=== PATIENT | male | born 1975 | race Caucasian/White ===

== ENCOUNTER 2017-05-04 15:41 | Emergency (ER) | payer BC ==
[2017-05-04 15:52] VITALS: BP 138/73; PULSE 78; TEMP 98.3; BMI 34.2
== END 2017-05-04 16:49 | disposition left against medical advice (07) ==
LOC: JERFT 15:41
DX: Z53.21 Procedure and treatment not carried out due to patient leaving prior to being seen by health care provider (principal)
CPT/HCPCS: 99281-25

== ENCOUNTER 2017-05-04 17:00 | Emergency (ER) | payer BC, OTHER ==
[2017-05-04 17:11] VITALS: BP 136/90; PULSE 88; TEMP 98.1; BMI 34.2
[2017-05-04] MEDS ORDERED: NAPROXEN 500 MG TABLET (FP) PO ONE (17:19)
[2017-05-04] MEDS ORDERED: NAPROXEN 500 MG TABLET (FP) ONE (17:23)
--- NOTE | 2017-05-04 17:23 | PDOC ---
History of Present Illness - General History Source: Patient Exam Limitations: No Limitations <Patel Clements - Last Filed: 05/04/17 17:40> - General History Source: Patient Exam Limitations: No Limitations - History of Present Illness Initial Comments: 05/04/17 17:27 The patient is a 42 year old male, with significant past medical history of asthma, who presents today with a right calf pain. The patient explains saw a raccoon and started running when he felt sudden pain and tightness to the back of his right calf. The pain is exacerbated when bearing weight. He believes that he pulled a muscle. The patient is ambulatory, but limping. Denies head trauma, or any other injuries. Denies numbness or tingling of the RLE. Allergies: seasonal <Va Taylor - Last Filed: 05/04/17 17:42> - General Chief Complaint: Injury Stated Complaint: RT LEG CALF PAIN Time Seen by Provider: 05/04/17 17:01 Past History - Past Medical History Asthma: Yes - Immunization History Immunization Up to Date: Yes - Psycho/Social/Smoking Cessation Hx Anxiety: No Suicidal Ideation: No Smoking Status: No Smoking History: Never smoked Have you smoked in the past 12 months: No Number of Cigarettes Smoked Daily: 0 Information on smoking cessation initiated: No Hx Alcohol Use: No Drug/Substance Use Hx: No Substance Use Type: None <Patel Clements - Last Filed: 05/04/17 17:40> <Va Taylor - Last Filed: 05/04/17 17:42> - Past Medical History Allergies/Adverse Reactions: Allergies Allergy/AdvReac Type Severity Reaction Status Date / Time seasonal Allergy Uncoded 05/04/17 17:01 Home Medications: Ambulatory Orders Albuterol Sulfate Inhaler - [Ventolin HFA Inhaler -] 1 - 2 inh PO Q4H #1 inhaler 09/12/16 Naproxen [Naprosyn -] 500 mg PO BID PRN #20 tablet 05/04/17 Review of Systems - Review of Systems Able to Perform ROS?: Yes Comments:: 05/04/17 17:28 GENERAL/CONSTITUTIONAL: No fever or chills. No weakness. HEAD, EYES, EARS, NOSE AND THROAT: No change in vision. No ear pain or discharge. No sore throat. CARDIOVASCULAR: No chest pain or shortness of breath. RESPIRATORY: No cough, wheezing, or hemoptysis. GASTROINTESTINAL: No nausea, vomiting, diarrhea or constipation. GENITOURINARY: No dysuria, frequency, or change in urination. MUSCULOSKELETAL: +right calf pain. No joint or muscle swelling or pain. No neck or back pain. SKIN: No rash NEUROLOGIC: No headache, vertigo, loss of consciousness, or change in strength/ sensation. ENDOCRINE: No increased thirst. No abnormal weight change. HEMATOLOGIC/LYMPHATIC: No anemia, easy bleeding, or history of blood clots. ALLERGIC/IMMUNOLOGIC: No hives or skin allergy. <Va Taylor - Last Filed: 05/04/17 17:42> *Physical Exam - Vital Signs Last Vital Signs Temp Pulse Resp BP Pulse Ox 98.1 F 88 18 136/90 97 05/04/17 17:01 05/04/17 17:01 05/04/17 17:01 05/04/17 17:01 05/04/17 17:01 <Patel Clements - Last Filed: 05/04/17 17:40> - Vital Signs Last Vital Signs Temp Pulse Resp BP Pulse Ox 98.1 F 88 18 136/90 97 05/04/17 17:01 05/04/17 17:01 05/04/17 17:01 05/04/17 17:01 05/04/17 17:01 - Physical Exam Comments: 05/04/17 17:29 GENERAL: Awake, alert, and fully oriented, in no acute distress HEAD: No signs of trauma EYES: PERRLA, EOMI, sclera anicteric, conjunctiva clear ENT: Auricles normal inspection, hearing grossly normal, nares patent, oropharynx clear without exudates. Moist mucosa NECK: Normal ROM, supple, no lymphadenopathy, JVD, or masses LUNGS: Breath sounds equal, clear to auscultation bilaterally. No wheezes, and no crackles HEART: Regular rate and rhythm, normal S1 and S2, no murmurs, rubs or gallops EXTREMITIES: +Mild swelling of the right calf compared to left calf. Tenderness to palpation of the right calf. Skin is not tense. 2+DP pulse. Cates test is negative. No pain elicited on passive plantar flexion and dorsiflexion of the foot. NEUROLOGICAL: Cranial nerves II through XII grossly intact. Normal speech, antalgic gait SKIN: Warm, Dry, normal turgor, no rashes or lesions noted. <Va Taylor - Last Filed: 05/04/17 17:42> Medical Decision Making - Medical Decision Making 05/04/17 17:18 A portion of this note was documented by scribe services under my direction. I have reviewed the details of the note, within reason, and agree with the documentation with the following case summary and management plan written by me. Patient treated in the ED. Nursing notes are reviewed and incorporated into the medical decision-making. Vital signs reviewed. Peripheral IV access obtained by the nurse, laboratory studies are drawn and sent, reviewed and interpreted by myself. Vital Signs Temp Pulse Resp BP Pulse Ox 98.1 F 88 18 136/90 97 05/04/17 17:01 05/04/17 17:01 05/04/17 17:01 05/04/17 17:01 05/04/17 17:01 42-year-old male with past medical history of asthma presents with right calf pain. The patient's or raccoon and started to run. He felt a sudden onset of right calf pain. Started to limp. Denies numbness or weakness. Came into the ED for further management. Physical exam demonstrates a mildly swollen right calf compared to left is tender to palpation. Cates test is negative and there are no concerns for Achilles tendon rupture at this time. However, I suspect that there is a Strain versus tear. There is no clinical evidence of compartment syndrome at this time. No pain on passive flexion. Skin is not tense. However, I advised patient that he starts developing symptoms, he needs to return to the ER immediately. Patient is May no weightbearing until patient can ambulate without limping. Alonso wrap applied. If symptoms persist, patient should follow with orthopedics. Patient will go home with his . I discussed the physical exam findings, ancillary test results and final diagnoses with the patient. I answered all of the patient's questions. The patient was satisfied with the care received and felt comfortable with the discharge plan and treatment plan. The patient will call their primary care physician within 24 hours to arrange follow-up and will return to the Emergency Department with any new, persistant or worsening symptoms. <Patel Clements - Last Filed: 05/04/17 17:40> *DC/Admit/Observation/Transfer - Discharge Dispostion Admit: No <Patel Clements - Last Filed: 05/04/17 17:40> - Attestations Scribe Attestion: 05/04/17 17:31 Documentation prepared by DEANDRE Muñoz, acting as medical device for Patel Clements MD. <Va Taylor - Last Filed: 05/04/17 17:42> Diagnosis at time of Disposition: Strain of calf muscle Qualifiers: Encounter type: initial encounter Laterality: right Qualified Code(s): S86.811A - Strain of other muscle(s) and tendon(s) at lower leg level, right leg , initial encounter - Discharge Dispostion Disposition: HOME Condition at time of disposition: Stable - Prescriptions Prescriptions: Naproxen [Naprosyn -] 500 mg PO BID PRN #20 tablet PRN Reason: Pain - Referrals Referrals: Lan Galan MD [Staff Physician] - - Patient Instructions Printed Discharge Instructions: DI for Calf Muscle Strain Additional Instructions: Use crutches at all times unless you can walk without limping. Elevate the leg as much as you can, especially when you sleep. Use the ALONSO wrap for comfort. Ice as needed. If your pain is persistent for more than 1 week, you will need an appointment with an orthopedist. If you have uncontrollable calf pain despite taking your pain medications, return immediately to the ER for pain control and further evaluation.
== END 2017-05-04 17:32 | disposition home or self-care (01) ==
LOC: FER 17:00
DX: S86.811A Strain of other muscle(s) and tendon(s) at lower leg level, right leg, initial encounter (principal); J45.909 Unspecified asthma, uncomplicated; X58.XXXA Exposure to other specified factors, initial encounter; Y93.02 Activity, running; Y92.9 Unspecified place or not applicable
CPT/HCPCS: 99282-25

== ENCOUNTER 2018-06-26 17:43 | Emergency (ER) | payer BC ==
--- NOTE | 2018-06-26 18:15 | PDOC ---
History of Present Illness - General History Source: Patient Exam Limitations: No Limitations <Arielle Justin Price - Last Filed: 06/26/18 18:53> - General History Source: Patient Exam Limitations: No Limitations - History of Present Illness Initial Comments: 06/26/18 18:59 The patient is a 43 year old male with a past medical history of asthma who presents to the emergency department for evaluation of back and right wrist pain s/p fall. 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 He denies loss of consciousness and head trauma. Patient describes the right wrist pain and back pain as constant, ranked 8/10 in severity. He reports taking two motrin this morning with no relief to the aforementioned pain. The patient denies abdominal pain, chest pain, shortness of breath, headache, and dizziness. Denies fevers, chills, nausea, vomiting, diarrhea, and constipation. Denies urinary urgency/frequency, dysuria, and hematuria. Allergies: NKDA, seasonal. Social History: No reported alcohol, cigarette, or drug use. Surgical History: Denies. <Phill Nunez - Last Filed: 06/26/18 19:00> - General Chief Complaint: Injury Stated Complaint: RIGHT WRIST PAIN Time Seen by Provider: 06/26/18 17:57 Past History - Past Medical History Asthma: Yes COPD: No - Immunization History Immunization Up to Date: Yes - Suicide/Smoking/Psychosocial Hx Smoking Status: No Smoking History: Never smoked Have you smoked in the past 12 months: No Number of Cigarettes Smoked Daily: 0 Information on smoking cessation initiated: No Hx Alcohol Use: No Drug/Substance Use Hx: No Substance Use Type: None <MargothArielle Thrasher - Last Filed: 06/26/18 18:53> <Phill Nunez - Last Filed: 06/26/18 19:00> - Past Medical History Allergies/Adverse Reactions: Allergies Allergy/AdvReac Type Severity Reaction Status Date / Time No Known Allergies Allergy Verified 06/26/18 18:40 Home Medications: Ambulatory Orders Lidocaine Patch Removal [Lidoderm Patch Removal] 1 each MC DAILY PRN #7 each 06/06 Review of Systems - Review of Systems Able to Perform ROS?: Yes Comments:: CVS: no cp or syncope. No edema. Resp: no sob. Abdomen: no abdominal pain, nausea or vomiting. MUSCULOSKELETAL: (+)Right wrist pain. (+)back pain. No joint pain and swelling. No neck pain. SKIN: no redness or skin changes, no discharge, no rash. Hematologic: no easy bruising/bleeding. NEUROLOGIC: No headache, dizziness, LOC or altered mental status. No weakness, numbness or tingling. All other systems reviewed and negative, or as documented in HPI. <Phill Nunez - Last Filed: 06/26/18 19:00> *Physical Exam - Vital Signs Last Vital Signs Temp Pulse Resp BP Pulse Ox 98.4 F 75 18 121/84 97 06/26/18 17:44 06/26/18 17:44 06/26/18 17:44 06/26/18 17:44 06/26/18 17:44 <JustinAriellejillian Calderontae - Last Filed: 06/26/18 18:53> - Vital Signs Last Vital Signs Temp Pulse Resp BP Pulse Ox 98.4 F 75 18 121/84 97 06/26/18 17:44 06/26/18 17:44 06/26/18 17:44 06/26/18 17:44 06/26/18 17:44 - Physical Exam Comments: General: NAD, well appearing Vascular: 2+ DP pulses symmetric and equal. Focused MSK/Neuro Exam notable for soft compartments, Cap refill <2 sec. Proximal and distal strength 5/5, showroom sales consultant strength 5/5 - equal and symmetric. FROM. Sensation grossly intact to light touch. Skin: color normal color, warm and well perfused. Back: (+)Mild perivertebral lumbar tenderness bilaterally, but FROM. No midline lumbar tenderness. Upper Extremity: (+)distal radius and ulnar tenderness distally. No scaphoid tenderness. shoulder abduction/adduction/flexion/extension and prox strength 5/ 5 actively against resistance. 5/5 shoulder shrug strength. deltoid sensation intact; sensation grossly intact in median/radial/ulnar distribution. distal showroom sales consultant strength 5/5. 2+ radialis pulses bilaterally and symmetric. No swelling or crepitus. <Phill Nunez - Last Filed: 06/26/18 19:00> ED Treatment Course - RADIOLOGY Radiology Studies Ordered: Category Date Time Status SPINE-LUMBAR SACRAL [RAD] Stat Radiology 06/26/18 18:06 Ordered WRIST W/HAND-RIGHT* [RAD] Stat Radiology 06/26/18 17:49 Ordered <Arielle Justin - Last Filed: 06/26/18 18:53> - Medications Given in the ED: ED Medications Discontinued Medications Generic Name Dose Route Start Last Admin Trade Name Freq PRN Reason Stop Dose Admin Acetaminophen 975 mg 06/26/18 18:35 06/26/18 18:44 Tylenol - PO 06/26/18 18:36 975 mg ONCE ONE Administration Lidocaine 1 patch 06/26/18 18:35 06/26/18 18:45 Lidoderm Patch - TP 06/26/18 18:36 Not Given ONCE ONE <Phill Nunez - Last Filed: 06/26/18 19:00> *DC/Admit/Observation/Transfer - Discharge Dispostion Decision to Admit order: No <Arielle Justin - Last Filed: 06/26/18 18:53> - Attestations Scribe Attestion: Documentation prepared by Phill Nunez, acting as medical office professional instructor for Arielle Justin MD. <Phill Nunez - Last Filed: 06/26/18 19:00> Diagnosis at time of Disposition: Lumbar back pain Sprain of forearm, right Qualifiers: Encounter type: initial encounter Qualified Code(s): S63.501A - Unspecified sprain of right wrist, initial encounter Sprain of wrist, right Qualifiers: Encounter type: initial encounter Qualified Code(s): S63.501A - Unspecified sprain of right wrist, initial encounter - Discharge Dispostion Disposition: HOME Condition at time of disposition: Improved - Prescriptions Prescriptions: Lidocaine Patch Removal [Lidoderm Patch Removal] 1 each MC DAILY PRN #7 each PRN Reason: Pain - Referrals Referrals: Reyes Barr MD [Staff Physician] - - Patient Instructions Printed Discharge Instructions: DI for Wrist Sprain, How to Prevent Falls, DI for Back Strain or Sprain Additional Instructions: motrin/tylenol as needed. wrist splint for comfort, exercises encouraged and range of motion movements. back pain supportive care with same medications and topical lidocaine patch 12 hours on and 12 hours off. follow up with your primary doctor as needed. FALL PREVENTION AT HOME WHAT YOU NEED TO KNOW There are many different factors that can increase your risk of falls. Falls can happen any time, but the majority of them occur in the home. Fall prevention includes ways to make your home and other areas safer. It also includes ways you can move more carefully to prevent a fall. Health conditions that cause changes in your blood pressure, vision, or muscle strength and coordination may increase your risk for falls. Medicines, including anesthesia, may increase your risk for falls if they make you dizzy, weak, or sleepy. FALL PREVENTION TIPS Stand or sit up slowly. This may help you keep your balance and prevent falls. Do not walk and talk at the same time. Concentrate on the task of walking and continue the conversation after you've reached a safe place. Wear shoes that fit well and have soles that showroom sales consultant. Wear shoes both inside and outside. Use slippers with good showroom sales consultant. Avoid shoes with high heels. Use assistive devices as directed. Your healthcare provider may suggest that you use a cane or walker to help you keep you balance. Be sure you have adequate lighting throughout your house. Keep paths clear. Remove books, shoes and other objects from walkways and stairs. Keep cords for telephones and lamps out of the way so you dont need to walk over them. Remove small rugs or secure them with double-sided tape. This will prevent you from tripping. Use a nightlight when getting out of bed at night. Stay active to maintain overall strength and endurance. Know your limitations. If there is a task you can not complete with ease, do not risk a fall by trying to complete it. Call 911 or have someone else call if: You have fallen and are unconscious You have fallen and cannot move part of your body Contact your healthcare provider if: You have fallen and have pain or a headache You have questions or concerns about your condition or care. - Post Discharge Activity Forms/Work/School Notes: Back to Work
[2018-06-26 18:20] VITALS: BP 121/84; PULSE 75; TEMP 98.4; BMI 33.3
[2018-06-26] MEDS ORDERED: ACETAMINOPHEN 325 MG TABLET (FP) PO ONE (18:35)
[2018-06-26] MEDS ORDERED: LIDOCAINE 5% TOPICAL PATCH TP ONE (18:35)
[2018-06-26] MEDS ORDERED: ACETAMINOPHEN 325 MG TABLET (FP) ONE (18:41)
[2018-06-26] MEDS ORDERED: LIDOCAINE PATCH REMOVAL MC SCH (22:00)
== END 2018-06-26 19:11 | disposition home or self-care (01) ==
LOC: FER 17:43
DX: S63.501A Unspecified sprain of right wrist, initial encounter (principal); M54.5 Low back pain; W18.39XA Other fall on same level, initial encounter; Y93.89 Activity, other specified; Y92.9 Unspecified place or not applicable; J45.909 Unspecified asthma, uncomplicated
CPT/HCPCS: 72100-TC-FY; 73110-TC-RT-FY; 73130-TC-RT-FY; 99281-25